=== PATIENT | female | born 1955 | race African-American/Black ===

== ENCOUNTER 2019-10-09 01:19 | Emergency (ER) | payer OTHER ==
[2019-10-09] MEDS ORDERED: Dexamethasone 10 MG/ML VIAL ONE (02:30)
--- NOTE | 2019-10-09 07:50 | RAD ---
Radiograph neck soft tissues 2 views: 10/09/2019 2:16 AM HISTORY: 64-year-old female with dysphagia FINDINGS: Prevertebral soft tissue thickness within normal limits. No definite thickening of epiglottis. No def inite radiopaque foreign body. No subglottic tracheal narrowing. IMPRESSION: Negative
== END 2019-10-09 03:00 | disposition home or self-care (01) ==
LOC: ERS 01:19
DX: R13.10 Dysphagia, unspecified (principal); E78.00 Pure hypercholesterolemia, unspecified; I10 Essential (primary) hypertension; K21.9 Gastro-esophageal reflux disease without esophagitis; J45.909 Unspecified asthma, uncomplicated; F41.9 Anxiety disorder, unspecified; Z79.899 Other long term (current) drug therapy
CPT/HCPCS: 70360; J1100